=== PATIENT | female | born 1990 | race Caucasian/White ===

== ENCOUNTER 2016-05-27 18:38 | Emergency (ER) | payer MEDICAID ==
[~2016-05-27] VITALS: Ht 160 cm; Wt 72.7 kg
[~2016-05-27 18:38] MED LIST: AMOXICILLIN 50500 MG PO; AURALGAN EAR DR15 ML OT; BCP TD; BIRTH CONTROL; CIPRO 500MG TA500 MG PO; DUO-KAPS1 CAP PO; FLEXERIL 1010 MG/TAB PO; IBU-8800 MG PO; IMPLANON68 MG ID; LORTAB 5/500 501 TAB PO; MACROBID 1100 MG/CAP PO; METRONIDAZOLE500 MG PO; NAPROSYN500 MG PO; NIX CREME RINSE60 M1; NO HOME MEDICATIONS; NORCO 325 MG-51 TAB PO; NORCO 325 MG-7.1 TAB PO; NORCOELIX PO; PENICILLIN V500 MG PO; PEPCID 20MG TAB20 MG PO; PERCOCET 325 MG1 TA2 PO; PHENERGAN 25 TA25 MG PO; PHENERGAN25 MG RC; PREDNISONE10 MG PO; PREDNISONE20 MG PO; PYRIDIUM200 M1 PO; REGLAN10 MG PO; TRIAMCINOLONE0.1% TP; YASMIN 3 MG-0.01 TAB PO; ZITHROMAX 250M250 MG PO; ZITHROMAX Z PA250 MG PO; ZOFRAN 4MG T4 MG/TAB PO
[2016-05-27 18:42] VITALS: TEMP 97.2
[2016-05-27] MEDS ORDERED: PRENATAL1 TA7 PO (19:06)
[2016-05-27 19:31] LABS: PH 6 (5-8); URINE APPEARANCE Hazy; URINE BACTERIA Rare /hpf; URINE BILIRUBIN Negative (NEGATIVE); URINE BLOOD Negative (NEGATIVE); URINE COLOR Yellow; URINE GLUCOSE Negative (NEGATIVE); URINE KETONE Negative (NEGATIVE); URINE RBC 0-2 /hpf; URINE UROBILINOGEN Negative (NEGATIVE); URINE WBC 0-2 /hpf
[2016-05-27 20:32] LABS: BASO # 0.1 (0.0-0.2); BASO % 0.5 % (0.0-2.0); EOS # 0.2 (0.0-0.7); EOS % 1.8 % (0-4.0); GRAN # 8.8 (1.4-6.5); GRAN % 70.3 % (42.2-75.2); LYMPH # 2.4 (1.2-3.4); LYMPH % 19.1 % (20.0-51.0); MEAN CELL VOLUME 93 fl (80.0-100.0); MEAN CORPUSCULAR HEMOGLOBIN 32 pg (27.0-31.0); MEAN CORPUSCULAR HGB CONC 34 g/dl (33.0-37.0); MONO # 0.9 (0.1-0.6); MONO % 7.5 % (1.7-9.3); PLATELET COUNT 274 K/mm3 (130-400); RED BLOOD COUNT 3.78 M/mm3 (4.10-5.30); REDCELL DISTRIBUTION WIDTH-CV 12.9 % (11.5-14.5); WHITE BLOOD COUNT 12.5 K/mm3 (4.8-10.8)
[2016-05-27 20:37] LABS: HEMATOCRIT 35.1 % (37.0-47.0)
[2016-05-27 20:53] LABS: ADJUSTED CALCIUM 9.2 mg/dL (8.4-10.2); ALBUMIN 3.6 gm/dL (3.5-5.0); BILIRUBIN,TOTAL 0.4 mg/dL (0.0-1.0); CALCIUM 8.9 mg/dL (8.4-10.2); CREATININE, serum 0.49 mg/dL (0.52-1.25); POTASSIUM 3.6 mmol/L (3.4-5.0); TOTAL PROTEIN 6.8 gm/dL (6.4-8.2)
[2016-05-27 21:28] VITALS: BP 106/55; PULSE 85
[2016-09-09] MEDS ORDERED: TYLENOL 500MG500 MG PO (02:10)
== END 2016-05-27 21:29 | disposition home or self-care (01) ==
LOC: COL.ER 18:38
PROVIDERS: Nurse Practitioner
DX: O26.892 Other specified pregnancy related conditions, second trimester (principal); Z3A.18 18 weeks gestation of pregnancy; R42 Dizziness and giddiness; R10.2 Pelvic and perineal pain; N94.89 Other specified conditions associated with female genital organs and menstrual cycle; O99.332 Smoking (tobacco) complicating pregnancy, second trimester; F17.210 Nicotine dependence, cigarettes, uncomplicated

== ENCOUNTER 2016-05-30 00:39 | Emergency (ER) | payer MEDICAID ==
[~2016-05-30] VITALS: Ht 157.5 cm; Wt 72.7 kg
[~2016-05-30 00:39] MED LIST changes: +PRENATAL1 TA7 PO
[2016-05-30 00:51] VITALS: TEMP 97.5
[2016-05-30 01:50] LABS: BASO # 0.1 (0.0-0.2); BASO % 0.5 % (0.0-2.0); EOS # 0.1 (0.0-0.7); EOS % 0.4 % (0-4.0); GRAN # 14.3 (1.4-6.5); GRAN % 86.8 % (42.2-75.2); HEMATOCRIT 40.9 % (37.0-47.0); LYMPH # 0.9 (1.2-3.4); LYMPH % 5.7 % (20.0-51.0); MEAN CELL VOLUME 93 fl (80.0-100.0); MEAN CORPUSCULAR HEMOGLOBIN 32 pg (27.0-31.0); MEAN CORPUSCULAR HGB CONC 34 g/dl (33.0-37.0); MEAN PLATELET VOLUME 10.2 fl (7.4-10.4); MONO # 0.9 (0.1-0.6); MONO % 5.7 % (1.7-9.3); PLATELET COUNT 275 K/mm3 (130-400); RED BLOOD COUNT 4.41 M/mm3 (4.10-5.30); REDCELL DISTRIBUTION WIDTH-CV 12.7 % (11.5-14.5); WHITE BLOOD COUNT 16.5 K/mm3 (4.8-10.8)
[2016-05-30 01:59] LABS: ADJUSTED CALCIUM 9.1 mg/dL (8.4-10.2); ALBUMIN 4.2 gm/dL (3.5-5.0); BILIRUBIN,TOTAL 0.7 mg/dL (0.0-1.0); CALCIUM 9.3 mg/dL (8.4-10.2); CREATININE, serum 0.51 mg/dL (0.52-1.25); POTASSIUM 3.5 mmol/L (3.4-5.0); TOTAL PROTEIN 7.8 gm/dL (6.4-8.2)
[2016-05-30 02:30] LABS: PH 5 (5-8); URINE APPEARANCE Cloudy; URINE BACTERIA Rare /hpf; URINE BILIRUBIN Negative (NEGATIVE); URINE BLOOD Negative (NEGATIVE); URINE COLOR Amber; URINE GLUCOSE Negative (NEGATIVE); URINE KETONE 1+ (NEGATIVE); URINE RBC 0-2 /hpf; URINE UROBILINOGEN Negative (NEGATIVE)
[2016-05-30] MEDS ORDERED: PHENERGAN 25 TA25 MG PO (03:05)
[2016-05-30 03:46] VITALS: BP 108/55; PULSE 104
[2016-09-09] MEDS ORDERED: TYLENOL 500MG500 MG PO (02:10)
== END 2016-05-30 03:48 | disposition home or self-care (01) ==
LOC: COL.ER 00:39
PROVIDERS: Nurse Practitioner
DX: R10.31 Right lower quadrant pain (principal); R10.32 Left lower quadrant pain; R10.2 Pelvic and perineal pain; R11.10 Vomiting, unspecified; R19.7 Diarrhea, unspecified
CPT/HCPCS: J2270; J2550; J7030

== ENCOUNTER → 2016-09-09 | Outpatient (CLI) | payer MEDICAID ==
[~2016-09-09] VITALS: Ht 157.5 cm; Wt 90.0 kg
[~2016-09-09] MED LIST changes: +MOTRIN 800800 MG/TAB PO; +TYLENOL 500MG500 MG PO
[2016-09-09 01:00] VITALS: BP 134/84; PULSE 121; TEMP 97.8
[2016-09-09 01:30] VITALS: BP 128/73; PULSE 103; TEMP 97.8
[2016-09-09 02:00] VITALS: BP 119/68; PULSE 91
[2016-09-09 02:30] VITALS: BP 121/76; PULSE 82
[2016-09-09 02:50] VITALS: BP 127/74; PULSE 92
== END ==
LOC: LDRO 00:35
DX: O62.9 Abnormality of forces of labor, unspecified (principal); Z3A.33 33 weeks gestation of pregnancy

== ENCOUNTER 2016-09-22 15:58 | Inpatient (IN) | payer MEDICAID ==
[~2016-09-22] VITALS: Ht 157.5 cm; Wt 95.5 kg
[~2016-09-22 15:58] MED LIST changes: -MOTRIN 800800 MG/TAB PO
[2016-10-20] VITALS (36 sets, daily range): BP systolic 104–143; BP diastolic 56–104; PULSE 82–160; TEMP 97.3–99
[2016-10-20] MEDS ORDERED: TYLENOL 500MG500 MG PO (08:51)
[2016-10-20 09:31] LABS: BASO # 0.1 (0.0-0.2); BASO % 0.5 % (0.0-2.0); EOS # 0.2 (0.0-0.7); EOS % 1.7 % (0-4.0); GRAN # 8.4 (1.4-6.5); GRAN % 67.2 % (42.2-75.2); LYMPH # 2.7 (1.2-3.4); LYMPH % 21.3 % (20.0-51.0); MEAN CELL VOLUME 89 fl (80.0-100.0); MEAN CORPUSCULAR HGB CONC 34 g/dl (33.0-37.0); MEAN PLATELET VOLUME 10.7 fl (7.4-10.4); MONO # 1.1 (0.1-0.6); MONO % 8.7 % (1.7-9.3); PLATELET COUNT 293 K/mm3 (130-400); RED BLOOD COUNT 3.76 M/mm3 (4.10-5.30); WHITE BLOOD COUNT 12.5 K/mm3 (4.8-10.8)
[2016-10-20 09:33] LABS: HEMATOCRIT 33.4 % (37.0-47.0); HEMOGLOBIN 11.2 g/dl (12.5-16.0); MEAN CORPUSCULAR HEMOGLOBIN 30 pg (27.0-31.0)
[2016-10-21 04:10] VITALS: BP 112/65; PULSE 110; TEMP 98
[2016-10-21 06:58] LABS: HEMATOCRIT 32.5 % (37.0-47.0); HEMOGLOBIN 10.8 g/dl (12.5-16.0)
[2016-10-21 07:15] VITALS: BP 110/63; PULSE 90; TEMP 97.9
[2016-10-21 11:00] VITALS: BP 115/62; PULSE 99; TEMP 98
[2016-10-21 15:15] VITALS: BP 111/53; PULSE 99; TEMP 97.6
[2016-10-21 19:00] VITALS: BP 117/76; PULSE 96; TEMP 97.5
[2016-10-22 08:00] VITALS: BP 132/69; PULSE 96; TEMP 98.1
[2016-10-22] MEDS ORDERED: PERCOCET 325 MG1 TA2 PO (08:56)
[2016-10-22] MEDS ORDERED: MOTRIN 800800 MG/TAB PO (08:56)
== END 2016-10-22 17:10 | disposition home or self-care (01) | DRG 775 ==
LOC: LDR 10-20 07:00 → OB 10-20 07:15 → LDR 10-20 07:15 → OB 10-20 20:30 → EDSTATUS 10-27 06:59 → LDRO 10-27 15:57
PROVIDERS: Obstetrics & Gynecology
PROC: 10E0XZZ Delivery of Products of Conception, External Approach (ICD-10-PCS; principal; 2016-10-20)
PROC: 3E033VJ Introduction of Other Hormone into Peripheral Vein, Percutaneous Approach (ICD-10-PCS; 2016-10-20)
PROC: 0W8NXZZ Division of Female Perineum, External Approach (ICD-10-PCS; 2016-10-20)
DX: O13.3 Gestational [pregnancy-induced] hypertension without significant proteinuria, third trimester (principal); O76 Abnormality in fetal heart rate and rhythm complicating labor and delivery; O66.0 Obstructed labor due to shoulder dystocia; Z3A.39 39 weeks gestation of pregnancy; Z37.0 Single live birth
CPT/HCPCS: J2590; J2795; J7120

== ENCOUNTER 2016-10-14 17:52 | Outpatient (CLI) | payer MEDICAID ==
[~2016-10-14] VITALS: Ht 157.5 cm; Wt 94.5 kg
[2016-10-14 18:10] VITALS: BP 128/76; PULSE 121; TEMP 97.9
[2016-10-14 19:17] VITALS: PULSE 92
== END 2016-10-14 19:25 | disposition home or self-care (01) ==
LOC: LDRO 17:52
DX: Z34.83 Encounter for supervision of other normal pregnancy, third trimester (principal); F17.210 Nicotine dependence, cigarettes, uncomplicated; Z3A.38 38 weeks gestation of pregnancy

== ENCOUNTER 2017-03-24 22:17 | Emergency (ER) | payer MEDICAID ==
[~2017-03-24] VITALS: Ht 157.5 cm; Wt 81.8 kg
[~2017-03-24 22:17] MED LIST changes: +MOTRIN 800800 MG/TAB PO
[2017-03-24 22:33] VITALS: BP 142/67; TEMP 98.4
[2017-03-25 00:15] VITALS: PULSE 96
== END 2017-03-25 00:15 | disposition home or self-care (01) ==
LOC: COL.ER 22:17
DX: H18.822 Corneal disorder due to contact lens, left eye (principal); H10.9 Unspecified conjunctivitis; F17.210 Nicotine dependence, cigarettes, uncomplicated

== ENCOUNTER → 2017-04-29 | Outpatient (CLI) | payer MEDICAID ==
[2017-04-29 15:15] LABS: TSH w REFLEX 17.2 uIU/mL (0.465-4.680)
== END ==
LOC: COL.LAB 10:45
PROVIDERS: Family Medicine
DX: R53.83 Other fatigue (principal)

== ENCOUNTER → 2017-07-22 | Outpatient (CLI) | payer MEDICAID ==
[2017-07-22 15:58] LABS: TSH w REFLEX 5.72 uIU/mL (0.465-4.680)
== END ==
LOC: COL.LAB 10:37
PROVIDERS: Family Medicine
DX: E03.9 Hypothyroidism, unspecified (principal); Z88.1 Allergy status to other antibiotic agents

== ENCOUNTER → 2017-08-18 | Outpatient (CLI) | payer MEDICAID ==
[2017-08-18 16:02] LABS: ALBUMIN 4.1 gm/dL (3.5-5.0); BILIRUBIN,TOTAL 0.4 mg/dL (0.0-1.0); CHOLESTEROL RISK RATIO 3.9; CREATININE, serum 0.6 mg/dL (0.52-1.25); POTASSIUM 3.7 mmol/L (3.4-5.0); TOTAL PROTEIN 7.8 gm/dL (6.4-8.2)
== END ==
LOC: COL.LAB 12:14
PROVIDERS: Family Medicine
DX: E66.9 Obesity, unspecified (principal); Z83.79 Family history of other diseases of the digestive system

== ENCOUNTER → 2017-09-16 | Outpatient (CLI) | payer MEDICAID ==
[~2017-09-16] VITALS: Ht 157.5 cm; Wt 79.4 kg
[~2017-09-16] MED LIST changes: +SYNTHROID0.075 MG/T PO
[2017-09-16 14:21] VITALS: BP 116/82; PULSE 80
== END ==
LOC: LIGHT 11:09
DX: E03.9 Hypothyroidism, unspecified (principal); E66.9 Obesity, unspecified; Z68.32 Body mass index [BMI] 32.0-32.9, adult; Z71.3 Dietary counseling and surveillance; J30.9 Allergic rhinitis, unspecified; K58.9 Irritable bowel syndrome, unspecified
CPT/HCPCS: G0463

== ENCOUNTER → 2017-10-11 | Outpatient (CLI) | payer MEDICAID | LOC: LIGHT 10:21 | DX: Z01.89 Encounter for other specified special examinations (principal) ==

== ENCOUNTER → 2017-10-11 | Outpatient (CLI) | payer MEDICAID ==
[2017-10-11 18:01] LABS: THYROID STIMULATING HORMONE 2.55 uIU/mL (0.465-4.680)
== END ==
LOC: COL.LAB 16:29
PROVIDERS: Family Medicine
DX: E03.9 Hypothyroidism, unspecified (principal)

== ENCOUNTER → 2017-10-21 | Outpatient (CLI) | payer MEDICAID ==
[~2017-10-21] VITALS: Ht 157.5 cm; Wt 79.8 kg
[~2017-10-21] MED LIST changes: +PHENTERMINE15 MG PO
[2017-10-21 14:03] VITALS: BP 110/56; PULSE 72
== END ==
LOC: LIGHT 13:44
DX: E03.9 Hypothyroidism, unspecified (principal); K58.9 Irritable bowel syndrome, unspecified; J30.9 Allergic rhinitis, unspecified; E66.9 Obesity, unspecified; Z68.32 Body mass index [BMI] 32.0-32.9, adult; Z71.3 Dietary counseling and surveillance
CPT/HCPCS: G0463

== ENCOUNTER → 2017-12-02 | Outpatient (CLI) | payer MEDICAID ==
[~2017-12-02] VITALS: Ht 157.5 cm; Wt 76.2 kg
[2017-12-02 14:12] VITALS: BP 116/70; PULSE 100
== END ==
LOC: LIGHT 11:44
DX: E03.9 Hypothyroidism, unspecified (principal); J30.9 Allergic rhinitis, unspecified; K58.9 Irritable bowel syndrome, unspecified; E66.9 Obesity, unspecified; Z68.30 Body mass index [BMI] 30.0-30.9, adult; Z71.3 Dietary counseling and surveillance
CPT/HCPCS: G0463

== ENCOUNTER → 2017-12-20 | Outpatient (CLI) | payer MEDICAID ==
[2017-12-20 16:34] LABS: HIV 1/2 Antibodies Non-Reactive; HIV-1p24 Antigen Non-Reactive
[2017-12-21 00:48] LABS: RPR (VDRL) Non-reactive (())
== END ==
LOC: COL.LAB 11:56
PROVIDERS: Family Medicine
DX: Z11.3 Encounter for screening for infections with a predominantly sexual mode of transmission (principal)

== ENCOUNTER → 2018-01-13 | Outpatient (CLI) | payer MEDICAID ==
[~2018-01-13] VITALS: Ht 157.5 cm; Wt 75.3 kg
[2018-01-13 14:12] VITALS: BP 122/86; PULSE 80
== END ==
LOC: LIGHT 13:28
DX: E03.9 Hypothyroidism, unspecified (principal); J30.9 Allergic rhinitis, unspecified; K58.9 Irritable bowel syndrome, unspecified; E66.9 Obesity, unspecified; Z68.30 Body mass index [BMI] 30.0-30.9, adult; Z71.3 Dietary counseling and surveillance
CPT/HCPCS: G0463

== ENCOUNTER 2018-03-16 20:15 | Emergency (ER) | payer MEDICAID ==
[~2018-03-16] VITALS: Ht 157.5 cm; Wt 75.0 kg
[~2018-03-16 20:15] MED LIST changes: +FASTIN30 MG PO; -PHENTERMINE15 MG PO
[2018-03-16 20:22] VITALS: TEMP 97.7
[2018-03-16 21:45] LABS: BASO # 0.1 (0.0-0.2); BASO % 0.5 % (0.0-2.0); EOS # 0.1 (0.0-0.7); EOS % 1.3 % (0-4.0); GRAN # 8.6 (1.4-6.5); GRAN % 81.4 % (42.2-75.2); HEMATOCRIT 42.8 % (37.0-47.0); HEMOGLOBIN 14.7 g/dl (12.5-16.0); LYMPH # 1.3 (1.2-3.4); LYMPH % 11.9 % (20.0-51.0); MEAN CELL VOLUME 88 fl (80.0-100.0); MEAN CORPUSCULAR HEMOGLOBIN 30 pg (27.0-31.0); MEAN CORPUSCULAR HGB CONC 34 g/dl (33.0-37.0); MONO # 0.5 (0.1-0.6); MONO % 4.6 % (1.7-9.3); PLATELET COUNT 284 K/mm3 (130-400); RED BLOOD COUNT 4.87 M/mm3 (4.10-5.30); REDCELL DISTRIBUTION WIDTH-CV 12.4 % (11.5-14.5)
[2018-03-16 22:05] LABS: ALBUMIN 4.6 gm/dL (3.5-5.0); BILIRUBIN,TOTAL 0.7 mg/dL (0.0-1.0); CALCIUM 9.3 mg/dL (8.4-10.2); CREATININE, serum 0.63 mg/dL (0.52-1.25); POTASSIUM 3.6 mmol/L (3.4-5.0); TOTAL PROTEIN 7.9 gm/dL (6.4-8.2)
[2018-03-16 22:35] LABS: COLLECTION METHOD CLEAN CATCH
[2018-03-16 22:42] LABS: MUCOUS Present /lpf; PH 5 (5-8); URINE APPEARANCE Hazy; URINE BACTERIA Rare /hpf; URINE BILIRUBIN Negative (NEGATIVE); URINE BLOOD 3+ (NEGATIVE); URINE COLOR Yellow; URINE GLUCOSE Negative (NEGATIVE); URINE KETONE Negative (NEGATIVE); URINE LEUKOCYTE ESTERASE Trace (NEGATIVE); URINE NITRATE Negative (NEGATIVE); URINE PROTEIN(semi-quant) Negative (NEGATIVE); URINE UROBILINOGEN Negative (NEGATIVE)
[2018-03-16 23:06] VITALS: BP 104/66; PULSE 97
== END 2018-03-16 23:11 | disposition home or self-care (01) ==
LOC: COL.ER 20:15
PROVIDERS: Emergency Medicine
DX: K52.9 Noninfective gastroenteritis and colitis, unspecified (principal); E03.9 Hypothyroidism, unspecified; Z98.51 Tubal ligation status; F17.210 Nicotine dependence, cigarettes, uncomplicated
CPT/HCPCS: J2765; J7030

== ENCOUNTER → 2018-03-17 | Outpatient (CLI) | payer MEDICAID ==
[~2018-03-17] VITALS: Ht 157.5 cm; Wt 73.7 kg
[2018-03-17 13:04] VITALS: BP 106/72; PULSE 100
== END ==
LOC: LIGHT 11:08
DX: E03.9 Hypothyroidism, unspecified (principal); J30.9 Allergic rhinitis, unspecified; E66.9 Obesity, unspecified; Z68.29 Body mass index [BMI] 29.0-29.9, adult; Z71.3 Dietary counseling and surveillance
CPT/HCPCS: G0463

== ENCOUNTER → 2018-04-21 | Outpatient (CLI) | payer MEDICAID ==
[~2018-04-21] VITALS: Ht 157.5 cm; Wt 71.9 kg
[2018-04-21 14:30] VITALS: BP 118/84; PULSE 88
== END ==
LOC: LIGHT 14:17
DX: E03.9 Hypothyroidism, unspecified (principal); J30.9 Allergic rhinitis, unspecified; E66.9 Obesity, unspecified; Z68.29 Body mass index [BMI] 29.0-29.9, adult; Z71.3 Dietary counseling and surveillance
CPT/HCPCS: G0463

== ENCOUNTER → 2018-06-02 | Outpatient (CLI) | payer MEDICAID ==
[~2018-06-02] VITALS: Ht 157.5 cm; Wt 71.2 kg
[2018-06-02 14:15] VITALS: BP 118/78; PULSE 76
== END ==
LOC: LIGHT 11:00
DX: E03.9 Hypothyroidism, unspecified (principal); J30.9 Allergic rhinitis, unspecified; K58.9 Irritable bowel syndrome, unspecified; E66.9 Obesity, unspecified; Z68.28 Body mass index [BMI] 28.0-28.9, adult; Z71.3 Dietary counseling and surveillance
CPT/HCPCS: G0463

== ENCOUNTER → 2018-07-14 | Outpatient (CLI) | payer MEDICAID ==
[~2018-07-14] VITALS: Ht 157.5 cm; Wt 69.4 kg
[2018-07-14 13:32] VITALS: BP 128/76; PULSE 100
== END ==
LOC: LIGHT 10:54
DX: E03.9 Hypothyroidism, unspecified (principal); J30.9 Allergic rhinitis, unspecified; E66.9 Obesity, unspecified; Z68.28 Body mass index [BMI] 28.0-28.9, adult; Z71.3 Dietary counseling and surveillance
CPT/HCPCS: G0463

== ENCOUNTER → 2018-08-25 | Outpatient (CLI) | payer MEDICAID ==
[~2018-08-25] VITALS: Ht 157.5 cm; Wt 70.8 kg
[2018-08-25 14:14] VITALS: BP 120/82; PULSE 92
== END ==
LOC: LIGHT 13:41
DX: E03.9 Hypothyroidism, unspecified (principal); J30.9 Allergic rhinitis, unspecified; E66.9 Obesity, unspecified; Z68.28 Body mass index [BMI] 28.0-28.9, adult; Z71.3 Dietary counseling and surveillance
CPT/HCPCS: G0463

== ENCOUNTER → 2018-10-06 | Outpatient (CLI) | payer MEDICAID ==
[~2018-10-06] VITALS: Ht 157.5 cm; Wt 69.9 kg
[2018-10-06 14:21] VITALS: BP 110/70; PULSE 68
== END ==
LOC: LIGHT 13:58
DX: E03.9 Hypothyroidism, unspecified (principal); J44.9 Chronic obstructive pulmonary disease, unspecified; E66.9 Obesity, unspecified; Z68.28 Body mass index [BMI] 28.0-28.9, adult; Z71.3 Dietary counseling and surveillance
CPT/HCPCS: G0463

== ENCOUNTER → 2018-12-15 | Outpatient (CLI) | payer MEDICAID ==
[~2018-12-15] VITALS: Ht 157.5 cm; Wt 69.9 kg
[2018-12-15 10:27] VITALS: BP 120/80; PULSE 80
== END ==
LOC: LIGHT 10:22
DX: E03.9 Hypothyroidism, unspecified (principal); J44.9 Chronic obstructive pulmonary disease, unspecified; E66.9 Obesity, unspecified; Z68.28 Body mass index [BMI] 28.0-28.9, adult; Z71.3 Dietary counseling and surveillance
CPT/HCPCS: G0463

== ENCOUNTER → 2019-01-19 | Outpatient (CLI) | payer MEDICAID ==
[~2019-01-19] VITALS: Ht 157.5 cm; Wt 69.4 kg
[~2019-01-19] MED LIST changes: +ADIPEX-P37.5 MG PO; -FASTIN30 MG PO
[2019-01-19 11:43] VITALS: BP 120/86; PULSE 100
== END ==
LOC: LIGHT 01-12 13:59
DX: E03.9 Hypothyroidism, unspecified (principal); J30.9 Allergic rhinitis, unspecified; E66.9 Obesity, unspecified; Z68.28 Body mass index [BMI] 28.0-28.9, adult; Z71.3 Dietary counseling and surveillance
CPT/HCPCS: G0463

== ENCOUNTER → 2019-03-08 | Outpatient (CLI) | payer MEDICAID | LOC: COL.RAD 15:21 | DX: R05 Cough (principal) ==

== ENCOUNTER 2019-04-02 03:36 | Emergency (ER) | payer MEDICAID ==
[~2019-04-02] VITALS: Ht 157.5 cm; Wt 70.0 kg
[2019-04-02 04:01] LABS: BASO # 0.1 (0.0-0.2); BASO % 0.7 % (0.0-2.0); EOS # 0.3 (0.0-0.7); EOS % 1.7 % (0-4.0); GRAN # 10.3 (1.4-6.5); GRAN % 63.4 % (42.2-75.2); HEMATOCRIT 42.2 % (37.0-47.0); HEMOGLOBIN 14.5 g/dl (12.5-16.0); LYMPH # 4.4 (1.2-3.4); LYMPH % 27.2 % (20.0-51.0); MEAN CELL VOLUME 88 fl (80.0-100.0); MEAN CORPUSCULAR HEMOGLOBIN 30 pg (27.0-31.0); MEAN CORPUSCULAR HGB CONC 34 g/dl (33.0-37.0); MEAN PLATELET VOLUME 10.1 fl (7.4-10.4); MONO # 1.1 (0.1-0.6); MONO % 6.6 % (1.7-9.3); PLATELET COUNT 387 K/mm3 (130-400); REDCELL DISTRIBUTION WIDTH-CV 12.2 % (11.5-14.5)
[2019-04-02 04:10] LABS: ALBUMIN 4.9 gm/dL (3.5-5.0); BILIRUBIN,TOTAL 0.3 mg/dL (0.0-1.0); CALCIUM 9.4 mg/dL (8.4-10.2); CREATININE, serum 0.67 (0.52-1.25); TOTAL PROTEIN 8.4 gm/dL (6.4-8.2)
[2019-04-02 05:10] LABS: COLLECTION METHOD CLEAN CATCH
[2019-04-02 05:20] LABS: MUCOUS Present /lpf; PH 5 (5-8); SQUAMOUS EPITHELIAL 0-2 /hpf; URINE APPEARANCE Clear; URINE BACTERIA None Seen /hpf; URINE BILIRUBIN Negative (NEGATIVE); URINE BLOOD Negative (NEGATIVE); URINE COLOR Yellow; URINE GLUCOSE Negative (NEGATIVE); URINE KETONE Negative (NEGATIVE); URINE LEUKOCYTE ESTERASE Negative (NEGATIVE); URINE NITRATE Negative (NEGATIVE); URINE PROTEIN(semi-quant) Negative (NEGATIVE); URINE RBC 0-2 /hpf; URINE UROBILINOGEN Negative (NEGATIVE)
[2019-04-02 07:56] VITALS: BP 119/80; PULSE 82; TEMP 97.9
[2019-04-02] MEDS ORDERED: NORCO 325 MG-51 TAB PO (08:04)
[2019-04-02] MEDS ORDERED: ZOFRAN ODT4 MG SL (08:04)
== END 2019-04-02 08:40 | disposition home or self-care (01) ==
LOC: COL.ER 03:36
PROVIDERS: Emergency Medicine
DX: K81.9 Cholecystitis, unspecified (principal); E03.9 Hypothyroidism, unspecified; K58.9 Irritable bowel syndrome, unspecified
CPT/HCPCS: J1170; J2405; J3010; J7030; Q9967

== ENCOUNTER 2019-04-02 15:46 | Emergency (ER) | payer MEDICAID ==
[~2019-04-02] VITALS: Ht 157.5 cm; Wt 69.5 kg
[~2019-04-02 15:46] MED LIST changes: +ZOFRAN ODT4 MG SL
[2019-04-02 15:58] VITALS: TEMP 98
[2019-04-02 16:35] LABS: ALBUMIN 4.4 gm/dL (3.5-5.0); BILIRUBIN,TOTAL 1.5 mg/dL (0.0-1.0); CALCIUM 8.7 mg/dL (8.4-10.2); CREATININE, serum 0.67 (0.52-1.25); POTASSIUM 4.2 mmol/L (3.4-5.0); TOTAL PROTEIN 7.6 gm/dL (6.4-8.2)
[2019-04-02 16:37] LABS: BASO % 0.5 % (0.0-2.0); EOS # 0.1 (0.0-0.7); EOS % 1.2 % (0-4.0); GRAN # 5.5 (1.4-6.5); GRAN % 66.2 % (42.2-75.2); HEMATOCRIT 40.1 % (37.0-47.0); HEMOGLOBIN 13.6 g/dl (12.5-16.0); LYMPH % 23.5 % (20.0-51.0); MEAN CELL VOLUME 90 fl (80.0-100.0); MEAN CORPUSCULAR HEMOGLOBIN 31 pg (27.0-31.0); MEAN CORPUSCULAR HGB CONC 34 g/dl (33.0-37.0); MEAN PLATELET VOLUME 10.2 fl (7.4-10.4); MONO # 0.7 (0.1-0.6); MONO % 8.2 % (1.7-9.3); PLATELET COUNT 327 K/mm3 (130-400); RED BLOOD COUNT 4.45 M/mm3 (4.10-5.30); REDCELL DISTRIBUTION WIDTH-CV 12.4 % (11.5-14.5)
[2019-04-02 18:50] VITALS: BP 103/65; PULSE 77
== END 2019-04-02 18:50 | disposition home or self-care (01) ==
LOC: COL.ER 15:46
PROVIDERS: Emergency Medicine
DX: R10.31 Right lower quadrant pain (principal)
CPT/HCPCS: J0780; J1170; J1885; J2405; J7030

== ENCOUNTER → 2019-05-11 | Outpatient (CLI) | payer MEDICAID ==
[~2019-05-11] MED LIST changes: +CONSTULOSE 20G/30ML PO; +MICONAZOLE VG
== END ==
LOC: COL.LAB 17:12
DX: E03.9 Hypothyroidism, unspecified (principal)

== ENCOUNTER 2019-05-19 21:32 | Emergency (ER) | payer MEDICAID ==
[~2019-05-19] VITALS: Ht 157.5 cm; Wt 68.2 kg
[~2019-05-19 21:32] MED LIST changes: -CONSTULOSE 20G/30ML PO; -MICONAZOLE VG
[2019-05-19 22:13] LABS: BASO # 0.1 (0.0-0.2); BASO % 0.6 % (0.0-2.0); EOS # 0.3 (0.0-0.7); GRAN # 7.7 (1.4-6.5); GRAN % 66.5 % (42.2-75.2); HEMATOCRIT 42.2 % (37.0-47.0); HEMOGLOBIN 14.3 g/dl (12.5-16.0); LYMPH # 2.5 (1.2-3.4); LYMPH % 21.4 % (20.0-51.0); MEAN CELL VOLUME 91 fl (80.0-100.0); MEAN CORPUSCULAR HEMOGLOBIN 31 pg (27.0-31.0); MEAN CORPUSCULAR HGB CONC 34 g/dl (33.0-37.0); MEAN PLATELET VOLUME 9.8 fl (7.4-10.4); MONO % 8.2 % (1.7-9.3); PLATELET COUNT 352 K/mm3 (130-400); RED BLOOD COUNT 4.65 M/mm3 (4.10-5.30); REDCELL DISTRIBUTION WIDTH-CV 12.6 % (11.5-14.5)
[2019-05-19 22:31] LABS: ALBUMIN 4.7 gm/dL (3.5-5.0); C-REACTIVE PROTEIN 1.6 mg/dL (0.0-0.9); CALCIUM 9.6 mg/dL (8.4-10.2); CREATININE, serum 0.6 (0.52-1.25); POTASSIUM 3.9 mmol/L (3.4-5.0); TOTAL PROTEIN 7.9 gm/dL (6.4-8.2)
[2019-05-19 23:16] LABS: COLLECTION METHOD CLEAN CATCH
[2019-05-19 23:28] LABS: BUDDING YEAST Present /hpf; PH 8 (5-8); SQUAMOUS EPITHELIAL 0-2 /hpf; URINE APPEARANCE Cloudy; URINE BACTERIA None Seen /hpf; URINE BILIRUBIN Negative (NEGATIVE); URINE BLOOD Negative (NEGATIVE); URINE COLOR Yellow; URINE GLUCOSE Negative (NEGATIVE); URINE KETONE Negative (NEGATIVE); URINE LEUKOCYTE ESTERASE Negative (NEGATIVE); URINE NITRATE Negative (NEGATIVE); URINE PROTEIN(semi-quant) Negative (NEGATIVE); URINE RBC 0-2 /hpf; URINE UROBILINOGEN Negative (NEGATIVE)
[2019-05-20] MEDS ORDERED: CONSTULOSE 20G/30ML PO (00:09)
[2019-05-20] MEDS ORDERED: NORCO 325 MG-51 TAB PO (00:09)
[2019-05-20] MEDS ORDERED: MICONAZOLE VG (00:12)
[2019-05-20 00:19] VITALS: BP 98/55; PULSE 94; TEMP 98.7
== END 2019-05-20 00:28 | disposition home or self-care (01) ==
LOC: COL.ER 21:32
PROVIDERS: Emergency Medicine
DX: K59.00 Constipation, unspecified (principal); G89.18 Other acute postprocedural pain; R10.84 Generalized abdominal pain; E03.9 Hypothyroidism, unspecified; F17.210 Nicotine dependence, cigarettes, uncomplicated; Z98.51 Tubal ligation status; Z90.89 Acquired absence of other organs
CPT/HCPCS: J2060; J2405; J3010; J7030; Q9967

== ENCOUNTER → 2019-05-26 | Outpatient (CLI) | payer MEDICAID ==
[~2019-05-26] MED LIST changes: +CONSTULOSE 20G/30ML PO; +MICONAZOLE VG
[2019-05-26 15:35] LABS: HEMATOCRIT 40.9 % (37.0-47.0); HEMOGLOBIN 13.7 g/dl (12.5-16.0); MEAN CELL VOLUME 91 fl (80.0-100.0); MEAN CORPUSCULAR HEMOGLOBIN 30 pg (27.0-31.0); MEAN CORPUSCULAR HGB CONC 34 g/dl (33.0-37.0); MEAN PLATELET VOLUME 9.8 fl (7.4-10.4); PLATELET COUNT 361 K/mm3 (130-400); RED BLOOD COUNT 4.52 M/mm3 (4.10-5.30); REDCELL DISTRIBUTION WIDTH-CV 12.4 % (11.5-14.5)
[2019-05-26 15:45] LABS: ALBUMIN 4.7 gm/dL (3.5-5.0); BILIRUBIN,TOTAL 0.7 mg/dL (0.0-1.0); CALCIUM 9.2 mg/dL (8.4-10.2); CREATININE, serum 0.57 (0.52-1.25); POTASSIUM 4.2 mmol/L (3.4-5.0); TOTAL PROTEIN 8.1 gm/dL (6.4-8.2)
== END ==
LOC: COL.LAB 15:03
PROVIDERS: Surgery
DX: K80.10 Calculus of gallbladder with chronic cholecystitis without obstruction (principal)

== ENCOUNTER 2019-06-02 13:14 | Day surgery (SDC) | payer MEDICAID ==
[2019-06-02] VITALS (12 sets, daily range): BP systolic 97–119; BP diastolic 54–75; PULSE 59–95; TEMP 97.3–97.9
[~2019-06-02] VITALS: Ht 157.5 cm; Wt 71.4 kg
[2019-06-02] MEDS ORDERED: ADIPEX-P37.5 MG PO (13:49)
--- NOTE | 2019-06-02 13:49 | NUR ---
TO RM AT 1315- CALL LIGHT IN REACH FAMILY AT BEDSIDE.
--- NOTE | 2019-06-02 15:50 | NUR ---
TO BAY 3 PER CART. PATIENT CRYING IN PAIN, RECEIVED FENTANYL IN PROCEDURE RM FOLLOWING PROCEDURE. RECEIVED WARM BLANKET ACROSS ABDOMEN. C/O NOSE BURNING. BLEW HER NOSE AND STATED IT HELPED.
--- NOTE | 2019-06-02 16:05 | NUR ---
PATIENT HAS CALMED DOWN AND NOT CRYING. DR RIVAS INTO TALK WITH PATIENT AND HER FAMILY.
--- NOTE | 2019-06-02 16:10 | NUR ---
RECEIVED WATER AND TAKING SIPS. NO LONGER CRYING AND STATED SHE IS FEELING BETTER.
--- NOTE | 2019-06-02 16:15 | NUR ---
1615-Patient is resting supine on ERCP cart with family at bedside. Vitals remain stable. She reports pain improved to 5/10 and is more "crampy" pain. Mild nausea so encouraged to hold off on fluids for now. She was given Zofran at 1530. Glasses returned to her. 1620-Report called to TYRONE Leahy on surgical floor. Patient is transferring to room 328.
--- NOTE | 2019-06-02 16:28 | NUR ---
1628-Taken via cart to room 328 by TYRONE Hart at this time. Belongings with her and family present to accompany her.
--- NOTE | 2019-06-02 18:29 | NUR ---
Patient to room 328 from [facility]. She was up to the bathroom & did have some emesis & did also void. Resting now. Vss on room air. Will let her rest. family at bedside.
--- NOTE | 2019-06-02 19:51 | NUR ---
Patient discharged at 1999 via wheelchair to home with family. IV to R wrist discontinued, catheter intact, bandaid applied. patient tolerated clears. has not had any emesis since arrival to floor. denies pain, except for slight headache. patient teaching done. discharge paperwork signed. no further needs at this time. has ambulated and voided without issue. dressed independently. patient discharged at 1999 via wheelchair to home with family.
== END 2019-06-02 20:00 | disposition home or self-care (01) ==
LOC: SDCO 13:14 → JCC 17:00 → SDCO 20:00
DX: K83.8 Other specified diseases of biliary tract (principal); K31.9 Disease of stomach and duodenum, unspecified; R94.5 Abnormal results of liver function studies; R10.11 Right upper quadrant pain; E03.9 Hypothyroidism, unspecified; F17.210 Nicotine dependence, cigarettes, uncomplicated; Z79.899 Other long term (current) drug therapy; Z88.1 Allergy status to other antibiotic agents; Z90.49 Acquired absence of other specified parts of digestive tract
CPT/HCPCS: OP; C1769; J2405; J2704; J3010; J7120; Q9967

== ENCOUNTER 2019-06-03 09:10 | Inpatient (IN) | payer MEDICAID ==
[~2019-06-03] VITALS: Ht 157.5 cm; Wt 75.9 kg
[2019-06-03] VITALS (10 sets, daily range): BP systolic 108–121; BP diastolic 59–66; PULSE 62–106; TEMP 98.5–99
[2019-06-03 10:08] LABS: BASO # 0.1 (0.0-0.2); BASO % 0.6 % (0.0-2.0); EOS # 0.3 (0.0-0.7); EOS % 2.3 % (0-4.0); GRAN # 9.9 (1.4-6.5); GRAN % 73.7 % (42.2-75.2); HEMATOCRIT 43.2 % (37.0-47.0); HEMOGLOBIN 14.5 g/dl (12.5-16.0); LYMPH # 2.3 (1.2-3.4); LYMPH % 16.9 % (20.0-51.0); MEAN CELL VOLUME 90 fl (80.0-100.0); MEAN CORPUSCULAR HEMOGLOBIN 30 pg (27.0-31.0); MEAN CORPUSCULAR HGB CONC 34 g/dl (33.0-37.0); MONO # 0.8 (0.1-0.6); MONO % 6.1 % (1.7-9.3); PLATELET COUNT 376 K/mm3 (130-400); RED BLOOD COUNT 4.78 M/mm3 (4.10-5.30); REDCELL DISTRIBUTION WIDTH-CV 12.2 % (11.5-14.5)
[2019-06-03 10:19] LABS: ALBUMIN 4.6 gm/dL (3.5-5.0); BILIRUBIN,TOTAL 0.7 mg/dL (0.0-1.0); C-REACTIVE PROTEIN 1.8 mg/dL (0.0-0.9); CALCIUM 9.1 mg/dL (8.4-10.2); CREATININE, serum 0.62 (0.52-1.25); TOTAL PROTEIN 7.6 gm/dL (6.4-8.2)
--- NOTE | 2019-06-03 12:10 | NUR ---
Patient arrived to floor from ED via bed. Patient is alert and oriented but reports severe pain and is very tearful at this time. Administered NOW dose of morphine that was not given in ED as confirmed by ED nurse. Patient reports little relief with medication administration. Call light within reach.
[2019-06-03 13:30] LABS: CHOLESTEROL RISK RATIO 2.9
--- NOTE | 2019-06-03 14:40 | NUR ---
HUMAN RESOURCES OFFICE MANAGER initiated per order. Patient reports pain at 8/10 and is tearful while awake. Patient is able to sleep, but rouses easily. Patient denies further needs at this time, call light within reach.
--- NOTE | 2019-06-03 16:54 | NUR ---
Patient reports severe pain when attempting to get out of the bed to urinate. Patient attempting to use the bedside commode at this time. Patient reports that pain is not well controlled, administered 0.2mg bolus dose per protocol, reported to hospitalist midlevel and recieved instructions to continue to monitor. Call light within reach.
--- NOTE | 2019-06-03 21:31 | NUR ---
Patient c/o severe pain. COMMUNITY PLANNING TECHNICIAN in place, encouraged patient to push button if pain was not controlled. pain was not adequately controlled and patient was yelling out in pain and tearful, COMMUNITY PLANNING TECHNICIAN dilaudid bolus of 0.2 mg given at this time. hot packs to abd. sleeping some but arouses easily. encouraged family to leave so that she could rest. took scheduled senokot with a sip of water without issue. SCDs applied. ABD old lap sites x4 noted, these are healed nicely. no further needs at this time. will continue to monitor.
[2019-06-04 04:44] VITALS: BP 144/77; PULSE 116; TEMP 98.3
[2019-06-04 04:46] VITALS: BP 144/77; PULSE 116
--- NOTE | 2019-06-04 07:30 | NUR ---
Patient resting in bed, tearful & upset. Patient reports abdominal pain, no specific location on abdomen. She reports pain into her back. Described as sharp,stabbing, aching. Manager Gyn Dilaudid for pain mangement, she is using bolus as needed. She denied hot pack/kpad. Cold wash cloth to her forehead. She also reported nausea-zofran Prn given. She is Npo. Assisted with oral care, she was very appreciative. Ivf per orders. Scds Ble. Will monitor.
[2019-06-04 07:49] LABS: BASO % 0.2 % (0.0-2.0); EOS # 0.3 (0.0-0.7); EOS % 1.7 % (0-4.0); GRAN # 15.3 (1.4-6.5); GRAN % 83.6 % (42.2-75.2); HEMOGLOBIN 14.1 g/dl (12.5-16.0); LYMPH # 1.4 (1.2-3.4); LYMPH % 7.4 % (20.0-51.0); MEAN CELL VOLUME 93 fl (80.0-100.0); MEAN CORPUSCULAR HEMOGLOBIN 31 pg (27.0-31.0); MEAN CORPUSCULAR HGB CONC 33 g/dl (33.0-37.0); MEAN PLATELET VOLUME 10.4 fl (7.4-10.4); MONO # 1.2 (0.1-0.6); MONO % 6.6 % (1.7-9.3); PLATELET COUNT 288 K/mm3 (130-400); RED BLOOD COUNT 4.61 M/mm3 (4.10-5.30); REDCELL DISTRIBUTION WIDTH-CV 12.5 % (11.5-14.5)
[2019-06-04 08:01] VITALS: BP 134/78; PULSE 102; TEMP 99.4
[2019-06-04 08:03] LABS: ALBUMIN 3.7 gm/dL (3.5-5.0); BILIRUBIN,TOTAL 0.7 mg/dL (0.0-1.0); CREATININE, serum 0.46 (0.52-1.25); POTASSIUM 3.5 mmol/L (3.4-5.0); TOTAL PROTEIN 6.6 gm/dL (6.4-8.2)
--- NOTE | 2019-06-04 10:16 | NUR ---
Patient sleeping, apprears very comfortable at this time.
--- NOTE | 2019-06-04 10:49 | NUR ---
Patient lives at home with her 9 year old daughter and 2 year old son in [place], [place] and plans to return home upon recovery. Patient receives support from her mother (Emily Yin [phone]), she is independent with daily living activities, and is a homemaker. Patient does not have any durable medical equipment usage or needs at this time, her primary care physician is Gayla Glaser, her pharmacy is [facility], and she does not have advance directives for healthcare completed at this time. No further needs and social service coordinator will follow as needed.
[2019-06-04 11:47] VITALS: BP 127/69; PULSE 131; TEMP 98.2
[2019-06-04 13:36] LABS: COLLECTION METHOD IN
[2019-06-04 13:46] LABS: MUCOUS Present /lpf; PH 5 (5-8); SQUAMOUS EPITHELIAL 0-2 /hpf; URINE APPEARANCE Hazy; URINE BACTERIA None Seen /hpf; URINE BILIRUBIN Negative (NEGATIVE); URINE BLOOD Negative (NEGATIVE); URINE COLOR Yellow; URINE GLUCOSE Negative (NEGATIVE); URINE KETONE 2+ (NEGATIVE); URINE LEUKOCYTE ESTERASE Negative (NEGATIVE); URINE NITRATE Negative (NEGATIVE); URINE PROTEIN(semi-quant) Negative (NEGATIVE); URINE RBC 0-2 /hpf; URINE UROBILINOGEN Negative (NEGATIVE)
[2019-06-04 16:08] VITALS: BP 128/63; PULSE 124; TEMP 100
--- NOTE | 2019-06-04 17:50 | NUR ---
Patient resting in bed. Hwang inserted this afternoon by washhouse hand after failed attempt by this nurse. Patient felt better after. Her Home Advisor setting changed & verified with Marii Rn- continous not just a bolus dose. She has denied nausea this afternoon. She is tolerating few ice chips. Strict I&O. Patient mood was improved until she talked on the phone with her family, then she became very upset. She is worried and concerned about her children & not being able to care for them.
[2019-06-04 19:11] VITALS: BP 124/58; PULSE 122; TEMP 98.4
--- NOTE | 2019-06-04 21:30 | NUR ---
Patient alert resting in bed. Patient has SENIOR PROGRAM MANAGER for pain management. Hwang catheter in a this time. Patient states pain is manageable, but does spike at times. Patient is tolerating ice chips. No nausea noted at this time.
[2019-06-05] VITALS (10 sets, daily range): BP systolic 105–129; BP diastolic 54–69; PULSE 108–133; TEMP 98.4–102
--- NOTE | 2019-06-05 01:32 | NUR ---
Patient day care teacher alerted this nurse that the patient was running a fever. Patient was covered in many blankets, removed blankets and rechecked temp at 101.8. Reported to Harini Mendiola APRN new orders noted.
[2019-06-05 06:41] LABS: HEMATOCRIT 37.2 % (37.0-47.0); MEAN CELL VOLUME 96 fl (80.0-100.0); MEAN CORPUSCULAR HEMOGLOBIN 31 pg (27.0-31.0); MEAN CORPUSCULAR HGB CONC 32 g/dl (33.0-37.0); MEAN PLATELET VOLUME 10.6 fl (7.4-10.4); PLATELET COUNT 292 K/mm3 (130-400); RED BLOOD COUNT 3.88 M/mm3 (4.10-5.30); REDCELL DISTRIBUTION WIDTH-CV 12.7 % (11.5-14.5)
[2019-06-05 07:02] LABS: CALCIUM 7.2 mg/dL (8.4-10.2); CREATININE, serum 0.53 (0.52-1.25); MAGNESIUM 1.8 mg/dL (1.6-2.3); POTASSIUM 3.1 mmol/L (3.4-5.0)
[2019-06-05 08:00] LABS: BAND 9 % (0-10); LYMPHOCYTE 10 % (20.0-51.0); NEUTROPHILS 75 % (42.0-75.2)
[2019-06-05 08:01] LABS: PLATELET ESTIMATE NORMAL (NORMAL)
--- NOTE | 2019-06-05 09:16 | NUR ---
PT RESTING IN BED. REFUSING AMITIZA. DR. RIVAS NOTIFIED OF CONSULT. CRITICAL LAB DISCUSSED WITH MEE MCKENZIE. SEE COMPUTER FOR ORDERS,
[2019-06-05 09:24] LABS: ARTERIAL BLD GAS O2 SATURATION 93.3 % (92-100); ARTERIAL BLD GAS TCO2 CT 14.8; ARTERIAL BLOOD GAS BASE EXCESS -10.7 (-2-2); ARTERIAL BLOOD GAS HCO3 13.9 meq/L (22-26); ARTERIAL BLOOD GAS PCO2 27.7 mmHg (35-45); ARTERIAL BLOOD GAS PO2 64.7 mmHg (80-100); ARTERIAL BLOOD GAS pH 7.32 (7.35-7.45)
--- NOTE | 2019-06-05 10:56 | NUR ---
PT TO CT AT THIS TIME. IV STOPPED UNTIL RETURNED.
--- NOTE | 2019-06-05 11:23 | NUR ---
PT RETURNED FROM CT,
--- NOTE | 2019-06-05 12:41 | NUR ---
First visit from the can inspector. No needs right now.
--- NOTE | 2019-06-05 15:49 | NUR ---
PATIENT CONTINUES TO BE TEARFUL WHEN TALKING WITH STAFF. PT IS SNORING AND SLEEPING BETWEEN CHECKS.
--- NOTE | 2019-06-05 18:30 | NUR ---
Report received at bedside from [facility] nurse. PT's aunt is present at bedside and requests that the Physician contacts her tomorrow morning to discuss the patient's condition. PT is noted to be in bed with fluids running via IV pump and PICCOLO MECHANIC pump. No s/s of distress noted. Will continue to monitor.
--- NOTE | 2019-06-05 21:00 | NUR ---
PT has been resting in bed alternating between having her eyes open and closed. PT has continues to have pain at her abdomen throughout the shift. During rounds this bond underwriter has reminded PT to use her CABLE ENGINEER OUTSIDE PLANT button to deliver her PRN meds via her CABLE ENGINEER OUTSIDE PLANT Pump. PT remains in stable condition with no s/s of distress. Will continue to monitor.
[2019-06-06] VITALS (14 sets, daily range): BP systolic 102–132; BP diastolic 52–71; PULSE 100–121; TEMP 98.8–102.3
--- NOTE | 2019-06-06 01:19 | NUR ---
PT is resting in bed at this time with eyes closed and no s/s of distress noted. IV fluids and CLIMATOLOGIST Pump infusing without complications nor s/s of adverse reactions noted. Will continue to monitor.
--- NOTE | 2019-06-06 04:30 | NUR ---
Pt is resting in bed peacefully with eyes closed and IV fluids and ABSTRACT MANAGER fluids infusing without complications. Pt has been up to the bedside commode with assistance from AGENT. PT has remained NPO this shift and has had ice chips for mouth hydration as well as using the melting ice water for oral care via swabs. Pt remains in stable condition at this time with no s/s of distress noted.
[2019-06-06 05:51] LABS: BASO # 0.1 (0.0-0.2); BASO % 0.4 % (0.0-2.0); EOS # 0.6 (0.0-0.7); EOS % 3.1 % (0-4.0); GRAN # 15.6 (1.4-6.5); GRAN % 79.8 % (42.2-75.2); HEMATOCRIT 36.1 % (37.0-47.0); LYMPH # 1.7 (1.2-3.4); LYMPH % 8.6 % (20.0-51.0); MEAN CELL VOLUME 93 fl (80.0-100.0); MEAN CORPUSCULAR HEMOGLOBIN 31 pg (27.0-31.0); MEAN CORPUSCULAR HGB CONC 33 g/dl (33.0-37.0); MEAN PLATELET VOLUME 9.8 fl (7.4-10.4); MONO # 1.5 (0.1-0.6); MONO % 7.6 % (1.7-9.3); PLATELET COUNT 277 K/mm3 (130-400); RED BLOOD COUNT 3.88 M/mm3 (4.10-5.30); REDCELL DISTRIBUTION WIDTH-CV 12.3 % (11.5-14.5)
[2019-06-06 06:06] LABS: ALANINE AMINOTRANSFERASE 17 U/L (4-34); ALBUMIN 3.1 gm/dL (3.5-5.0); ALKALINE PHOSPHATASE 114 U/L (50-136); ANION GAP 12 mmol/L (7-16); AST,SGOT 20 U/L (15-37); CALCIUM 7.6 mg/dL (8.4-10.2); CARBON DIOXIDE 20 mmol/L (22-30); CHLORIDE 104 mmol/L (98-107); CREATININE, serum 0.43 (0.52-1.25); GLUCOSE 94 mg/dL (74-106); MAGNESIUM 1.7 mg/dL (1.6-2.3); POTASSIUM 3.6 mmol/L (3.4-5.0); SODIUM 135 mmol/L (137-145); TOTAL PROTEIN 5.9 gm/dL (6.4-8.2)
[2019-06-06 06:10] LABS: BLOOD UREA NITROGEN < 2 mg/dL (7-17)
--- NOTE | 2019-06-06 06:40 | NUR ---
PT reported given to Marni HANSEN at bedside. Pt is resting peacefully with eyes closed and periodically making noises consistent with pain. No distress noted.
--- NOTE | 2019-06-06 08:00 | NUR ---
PATIENT IS DROWSY AND RESTING IN BED THIS MORNING. PATIENT IS A&OX4. TACHYCARDIA NOTED. TELE IN PLACE. SHALLOW BREATHING NOTED. LUNG BASES DIMINISHED. ABDOMEN IS DISTENDED. BOWEL SOUNDS HYPOACTIVE. OLD ABDOMINAL LAP SITES WELL APPROXIMATED. TRACE EDEMA TO BLE. INDWELLING RAMESH CATHETER TO DEPENDENT DRAINAGE WITH CLEAR YELLOW URINE PRESENT. COST ESTIMATOR INFUSING TO LEFT AC. RIGHT FOREARM TO INT. CALL LIGHT WITHIN REACH. PATIENT DENIES ANY NEEDS AT THIS TIME.
--- NOTE | 2019-06-06 11:41 | NUR ---
GUY attended clinical rounds. The hospitalist discussed consulting the dietitian for TPN and getting a PICC placed. GUY then followed up with the patient. She states that she is doing okay. She states that her two children are with her sister, Alena, while she is here. She had no other questions for GUY at this time. SW to continue to follow.
--- NOTE | 2019-06-06 12:15 | NUR ---
PATIENT SAT UP AT THE BEDSIDE FOR 15 MINUTES. PATIENT BECAME NAUSEATED WHEN LAYING BACK DOWN. PRN ZOFRAN GIVEN. WILL CONTINUE TO MONITOR.
--- NOTE | 2019-06-06 16:45 | NUR ---
PATIENT ASSISTED UP TO THE BEDSIDE CHAIR. LINENS CHANGED. PATIENT ASSISTED WITH BED BATH. CALL LIGHT AND COOK VEGETABLE BUTTON WITHIN REACH. PATIENT DENIES ANY OTHER NEEDS AT THIS TIME.
--- NOTE | 2019-06-06 18:49 | NUR ---
PATIENT EVENING BLOOD SUGAR 69. IV FLUIDS CHANGED TO D10W AT 50 ML/HR PER PROTOCOL. PATIENT UP TO CHAIR. BEDSIDE SHIFT REPORT GIVEN TO TYRONE MONTOYA.
--- NOTE | 2019-06-06 23:51 | NUR ---
Patient doing okay tonight, alert and oriented. c/o moderate pain to abd. LABORER YARD infusing without issues, encouraged pt to push button if in pain. torres to dependent drainage with clear yellow urine output. IV fluids and IV abx infusing without issue. patient remains NPO with ice chips. old lap sites x4 healed. patient concerned about the bruises to bilateral thighs, reminded patient that she has not been eating and is probably low on iron and that she is on her period as well so bruising easily is fairly normal. no further needs at this time. patient is resting in bed, will continue to monitor.
[2019-06-07] VITALS (7 sets, daily range): BP systolic 113–134; BP diastolic 64–69; PULSE 106–121; TEMP 98.4–100.5
--- NOTE | 2019-06-07 02:10 | NUR ---
patient noted to have elevated temp by STAFF TRAINER, 102.3. PRN tylenol given. Harini MCKENZIE notified, stat CT ordered. no significant change from previous CT. Discussed with harini mckenzie. will continue to monitor.
[2019-06-07 06:05] LABS: BASO # 0.1 (0.0-0.2); BASO % 0.3 % (0.0-2.0); EOS # 0.5 (0.0-0.7); EOS % 2.9 % (0-4.0); GRAN # 14.1 (1.4-6.5); GRAN % 78.1 % (42.2-75.2); HEMATOCRIT 35.1 % (37.0-47.0); HEMOGLOBIN 12.1 g/dl (12.5-16.0); LYMPH # 1.5 (1.2-3.4); LYMPH % 8.2 % (20.0-51.0); MEAN CELL VOLUME 91 fl (80.0-100.0); MEAN CORPUSCULAR HEMOGLOBIN 31 pg (27.0-31.0); MEAN CORPUSCULAR HGB CONC 35 g/dl (33.0-37.0); MEAN PLATELET VOLUME 9.9 fl (7.4-10.4); MONO # 1.7 (0.1-0.6); MONO % 9.6 % (1.7-9.3); PLATELET COUNT 282 K/mm3 (130-400); RED BLOOD COUNT 3.88 M/mm3 (4.10-5.30); REDCELL DISTRIBUTION WIDTH-CV 12.2 % (11.5-14.5)
[2019-06-07 06:08] LABS: INR 1.3 (0.8-3.0); PROTHROMBIN TIME 15.4 SECONDS (9.7-12.8)
[2019-06-07 06:10] LABS: ALANINE AMINOTRANSFERASE 20 U/L (4-34); ALBUMIN 3.4 gm/dL (3.5-5.0); ALKALINE PHOSPHATASE 144 U/L (50-136); ANION GAP 10 mmol/L (7-16); AST,SGOT 31 U/L (15-37); BILIRUBIN,TOTAL 0.7 mg/dL (0.0-1.0); BLOOD UREA NITROGEN < 2 mg/dL (7-17); CARBON DIOXIDE 24 mmol/L (22-30); CHLORIDE 101 mmol/L (98-107); CREATININE, serum 0.31 (0.52-1.25); GLUCOSE 109 mg/dL (74-106); MAGNESIUM 1.8 mg/dL (1.6-2.3); POTASSIUM 3.4 mmol/L (3.4-5.0); SODIUM 135 mmol/L (137-145); TOTAL PROTEIN 6.4 gm/dL (6.4-8.2)
--- NOTE | 2019-06-07 09:26 | NUR ---
Patient to radiology for Picc line placement. consent obtained Christineyuly was assisted with hygiene this am. New mesh underwear & pad. Pericare & torres care provided. Fresh linens. She was independent with oral care. She remains Npo, with ice chips-denies nausea. Pain continues to be managed with Commercial Cleaner.
--- NOTE | 2019-06-07 11:00 | NUR ---
Patient had returned from radiology. Spoke with on phone prior to patient arrival to floor and he verified line was okay for immediate use, but that he did not heparinize line. Patient settled back in her bed & Iv line hooked up. Picc line cap placed that was not on line & started new central line dressing change because dressing was bloody. Kennedy with radiology returned & per chest xray placement on not correct. Patient then taken back to radiology department & placement confirmed.
--- NOTE | 2019-06-07 11:38 | NUR ---
Patient has returned from radiology. Picc to Right upper arm. Dressing intact with gauze & tegaderm over site. No stat lock. Berkley Parker rounded & aware of issuse with Picc line. supervisor communications and signals & supervisor coin machine also made aware
[2019-06-07 12:30] LABS: PHOSPHOROUS 1.4 mg/dL (2.5-4.5)
[2019-06-07 12:34] LABS: PRE ALBUMIN 5.2 mg/dL (17.6-36.0)
--- NOTE | 2019-06-07 19:32 | NUR ---
Patient resting in bed. She has had an eventful day. Clindamix started via single lumen picc line to Rue at 42 ml/hr. Good blood return prior to starting. Patient sodium phosphate finished via picc. Prior to starting Coni RN & Vesna RN supervisors assisted with Picc line dressing change via sterile teqchnique. Iv to Rac with Ivf clarifited with hospitalist-Ns at 75ml/hr. K+ protocol one bag left. Slow zosyn. Dilaudid Chocolate Packer continues to manage pain. Adequate urine out via torres. She remains npo, few ice chips. was notified of consult and all questions answered. COntinue to encourage Is usage today. Scds ble. Vss, tele on. Bedside report to Kathy & who will resume care.
--- NOTE | 2019-06-07 21:00 | NUR ---
Pt was sitting up in bed watching television. Pt had no abnormal findings during her assesment. Pt has a torres in place and has has clear yellow urine. Pt has been tolerating ice chips and sips of water while taking her PO medications. Pt was reminded to press the button on her FLYING I INSTRUCTOR pump if she was having pain. She stated at one time that she was having pain but she stated she had forgot to hit the button. Pt has her call light within reach!
[2019-06-08] VITALS (12 sets, daily range): BP systolic 119–144; BP diastolic 60–84; PULSE 99–112; TEMP 97.5–100.8
--- NOTE | 2019-06-08 | NUR ---
Pt currently lying in bed. Pt did state that her bladder felt very full. I repositioned her and she was able to get relief once the torres began to drain. She did have an elevated temp at 0001 which was 100.0. Tylenol was given at this time and a cool towel was placed on her forehead. The temp did go down in like 45 mins to 99.4, this was taken orally. Pt did not have any other concerns at this time. Call light is within reach.
--- NOTE | 2019-06-08 04:09 | NUR ---
Pt currently lying in bed sleeping. Her call light is within reach and her bed is lowest postion
[2019-06-08 07:11] LABS: BASO # 0.1 (0.0-0.2); BASO % 0.5 % (0.0-2.0); EOS # 0.5 (0.0-0.7); EOS % 3.4 % (0-4.0); GRAN # 11.4 (1.4-6.5); HEMOGLOBIN 10.4 g/dl (12.5-16.0); LYMPH # 1.9 (1.2-3.4); MEAN CELL VOLUME 90 fl (80.0-100.0); MEAN CORPUSCULAR HEMOGLOBIN 30 pg (27.0-31.0); MEAN CORPUSCULAR HGB CONC 33 g/dl (33.0-37.0); MEAN PLATELET VOLUME 10.4 fl (7.4-10.4); MONO # 1.5 (0.1-0.6); MONO % 9.6 % (1.7-9.3); PLATELET COUNT 323 K/mm3 (130-400); RED BLOOD COUNT 3.46 M/mm3 (4.10-5.30); REDCELL DISTRIBUTION WIDTH-CV 12.2 % (11.5-14.5)
[2019-06-08 07:12] LABS: HEMATOCRIT 31.2 % (37.0-47.0)
[2019-06-08 07:42] LABS: CALCIUM 7.9 mg/dL (8.4-10.2); CREATININE, serum 0.31 (0.52-1.25); MAGNESIUM 1.9 mg/dL (1.6-2.3); PHOSPHOROUS 2.3 mg/dL (2.5-4.5); POTASSIUM 3.4 mmol/L (3.4-5.0)
--- NOTE | 2019-06-08 08:00 | NUR ---
PATIENT RESTING IN BED THIS MORNING. TACHYCARDIA NOTED. VSS. ABDOMEN DISTENDED BUT SOFT UPON PALPATION. PATIENT STATES SHE'S PASSING FLATUS AND HAS HAD A SMALL BOWEL MOVEMENT. TRACE EDEMA TO FEET BILATERALLY. CALL LIGHT AND LOG CHAIN FEEDER BUTTON WITHIN REACH. PATIENT DENIES ANY NEEDS AT THIS TIME.
--- NOTE | 2019-06-08 12:40 | NUR ---
IV FLUID RATE CHANGED TO 30 ML/HR PER ORDERS. PATIENT SITTING UP IN CHAIR AT THE BEDSIDE. PATIENT DENIES ANY NEEDS AT THIS TIME.
--- NOTE | 2019-06-08 13:09 | NUR ---
PATIENT HAS TEMPERATURE OF 99.8. PATIENT GIVEN PRN DOSE OF TYLENOL. WILL CONTINUE TO MONITOR.
--- NOTE | 2019-06-08 15:54 | NUR ---
GUY attended clinical rounds. The hospitalist discussed focusing on getting up and moving for the patient and decreasing pain meds. She remains on TPN. SW to continue to follow.
--- NOTE | 2019-06-08 15:59 | NUR ---
RAMESH DISCONTINUED PER ORDERS. 9 ML ASPIRATED FROM BALLOON. BALLOON TIP INTACT. PATIENT TOLERATED WELL.
--- NOTE | 2019-06-08 17:56 | NUR ---
PATIENT VOIDING SUFFICIENTLY POST RAMESH REMOVAL. PATIENT SITTING UP IN THE CHAIR AT THE BEDSIDE. PATIENT REQUESTS ICE CHIPS. NO OTHER NEEDS AT THIS TIME.
--- NOTE | 2019-06-08 19:00 | NUR ---
BEDSIDE SHIFT REPORT GIVEN TO TYRONE CUNNINGHAM.
--- NOTE | 2019-06-08 21:00 | NUR ---
PT BACK TO BED, HAD BEEN UP IN CHAIR AT BEDSIDE FOR MOST OF AFTERNOON. REMAINS ON CHIEF RADIOLOGY DILAUDID FOR ABD PAIN. COMPLAINS OF BACK PAIN WELL. IV SITE TO LEFT AC WITHOUT REDNESS OR SWELLING. HAS SINGLE LUMEN PICC TO RIGHT ARM WITH CLINIMIX INFUSING. SHE REMAINS NPO EXCEPT FOR ICE CHIPS SPARINGLY. IS VOIDING WELL SINCE RAMESH DC'D TODAY.
--- NOTE | 2019-06-08 23:44 | NUR ---
PT HAS TEMP 100.8, SHE IS LAYING ON A KPAD FOR BACK DISCOMFORT.
[2019-06-09 02:58] VITALS: BP 120/54; PULSE 110; TEMP 99.8
--- NOTE | 2019-06-09 04:30 | NUR ---
Pt resting well. ECHOCARDIOGRAPHER Dilaudid syringe changed at this time. Has KPAD off at this time.
[2019-06-09 07:00] LABS: HEMOGLOBIN 10.9 g/dl (12.5-16.0); MEAN CELL VOLUME 91 fl (80.0-100.0); MEAN CORPUSCULAR HEMOGLOBIN 30 pg (27.0-31.0); MEAN CORPUSCULAR HGB CONC 33 g/dl (33.0-37.0); PLATELET COUNT 403 K/mm3 (130-400); RED BLOOD COUNT 3.59 M/mm3 (4.10-5.30); REDCELL DISTRIBUTION WIDTH-CV 12.4 % (11.5-14.5)
[2019-06-09 07:08] LABS: HEMATOCRIT 32.8 % (37.0-47.0)
[2019-06-09 07:13] VITALS: BP 128/76; PULSE 112; TEMP 98.2
[2019-06-09 07:16] LABS: CALCIUM 8.3 mg/dL (8.4-10.2); CREATININE, serum 0.34 (0.52-1.25); MAGNESIUM 2.2 mg/dL (1.6-2.3); PHOSPHOROUS 2.8 mg/dL (2.5-4.5); POTASSIUM 3.5 mmol/L (3.4-5.0)
[2019-06-09 07:25] LABS: BAND 10 % (0-10); EOSINOPHIL 4 % (0-4); LYMPHOCYTE 20 % (20.0-51.0); NEUTROPHILS 56 % (42.0-75.2); PLATELET ESTIMATE INCREASED (NORMAL)
--- NOTE | 2019-06-09 09:23 | NUR ---
Patient standing at sink brushing her teeth. Awake alert, in positive spirits. Voided this am. Picc to Rue, Tpn per orders. She remains Npo, denies nausea. Specialty Person continues to pain mangment. Rating 8/10 after using her IS. Lungs bases diminished.
--- NOTE | 2019-06-09 09:50 | NUR ---
hospitalsit team rounded. Fulfillment Associate adjusted per orders. Clear liquids provided, instructed her to take it very slow.
--- NOTE | 2019-06-09 11:36 | NUR ---
Ambulated in halls with patient & she did well. Pain was elevated after, one tab roxicodone for pain per request. SHe is sipping on apple clear liquid ensure very slowly. Will monitor.
[2019-06-09 11:37] VITALS: BP 134/72; PULSE 105; TEMP 98.6
--- NOTE | 2019-06-09 13:28 | NUR ---
SW attended clinical rounds. The patient remains on TPN. Plan is to start the patient on a clear liquid diet. SW to continue to follow.
[2019-06-09 15:39] VITALS: BP 130/73; PULSE 106; TEMP 97.8
--- NOTE | 2019-06-09 19:49 | NUR ---
Patient doing very well. She reports feeling so much better. She showered this afternoon. We ambulated the halls again this evening. She has tolerated sips of clears. Pain manged with Rn Mobile, we have avoided using more roxicodone because it gve her bad dreams & made her too sleepy. Picc to Rue with Tpn per orders, blood sugars manged. Lac Iv with wine master & Ivf. Report to nightshift nurse
[2019-06-09 20:00] VITALS: BP 148/96; PULSE 111
[2019-06-09 21:27] VITALS: BP 148/96; PULSE 111; TEMP 98.5
[2019-06-10] VITALS (7 sets, daily range): BP systolic 126–148; BP diastolic 65–91; PULSE 92–108; TEMP 98–99
--- NOTE | 2019-06-10 04:25 | NUR ---
On RA for >24hrs, completing intervention per protocol.
--- NOTE | 2019-06-10 04:29 | NUR ---
Patient had trouble falling asleep last night. PRN Melatonin 3mg order given by MAGALY Delaney. This was noted to be effective. Patient complains of pain to her back. Refuses PRN Oxycodone d/t lethargy yesterday. IV antibiotics given as prescribed. Patient ambulated with one assist from staff. Tolerated this well. Will continue to monitor.
[2019-06-10 05:53] LABS: BASO # 0.1 (0.0-0.2); BASO % 0.6 % (0.0-2.0); EOS # 0.9 (0.0-0.7); EOS % 5.8 % (0-4.0); GRAN % 67.6 % (42.2-75.2); HEMOGLOBIN 10.6 g/dl (12.5-16.0); LYMPH # 2.1 (1.2-3.4); LYMPH % 13.1 % (20.0-51.0); MEAN CELL VOLUME 93 fl (80.0-100.0); MEAN CORPUSCULAR HEMOGLOBIN 30 pg (27.0-31.0); MEAN CORPUSCULAR HGB CONC 33 g/dl (33.0-37.0); MEAN PLATELET VOLUME 9.5 fl (7.4-10.4); MONO # 1.8 (0.1-0.6); MONO % 11.2 % (1.7-9.3); PLATELET COUNT 435 K/mm3 (130-400); RED BLOOD COUNT 3.49 M/mm3 (4.10-5.30); REDCELL DISTRIBUTION WIDTH-CV 12.7 % (11.5-14.5)
[2019-06-10 05:54] LABS: HEMATOCRIT 32.4 % (37.0-47.0)
[2019-06-10 06:03] LABS: CALCIUM 8.4 mg/dL (8.4-10.2); CREATININE, serum 0.37 (0.52-1.25); PHOSPHOROUS 4.3 mg/dL (2.5-4.5); POTASSIUM 4.1 mmol/L (3.4-5.0)
--- NOTE | 2019-06-10 08:55 | NUR ---
PATIENT GIVEN PRN TYLENOL FOR TEMP OF 99.0. PATIENT STATES THAT SHE FEEL WARM. PATIENT REQUESTING SHOWER THIS AFTERNOON.
--- NOTE | 2019-06-10 10:41 | NUR ---
STOP MARINE DIESEL MECHANIC AND START PO PAIN MEDICATION. STOP IV FLUIDS. START PATIENT ON MECHANICAL SOFT DIET. VORCas SALGADO TO THIS NURSE.
--- NOTE | 2019-06-10 10:50 | NUR ---
PATIENTS IV FLUIDS AND WIRE TINNER STOPPED PER DOCTOR ORDERS. PATIENT GIVEN PRN DOSE OF ROXICODONE.
--- NOTE | 2019-06-10 11:13 | NUR ---
LENA WITH RT CALLED AND NOTIFIED THAT THE PATIENT IS NO LONGER ON ADVERTISING COLUMNIST.
--- NOTE | 2019-06-10 12:04 | NUR ---
PATIENT DISCONNECTED FROM TPN FOR SHOWER. PATIENT DENIES ANY PAIN AT THIS TIME.
--- NOTE | 2019-06-10 12:25 | NUR ---
PATIENT RECONNECTED TO TPN. PATIENT STATES THAT SHE HAD A LARGE BOWEL MOVEMENT AND THAT IT HAS RELIEVED ALOT OF PRESSURE IN THE ABDOMEN AND BACK. PATIENT STATES THAT SHE FEELS MUCH BETTER NOW.
--- NOTE | 2019-06-10 13:00 | NUR ---
PATIENT REPORTS 3 LARGE LOOSE, LIQUID STOOLS THIS MORNING AFTER AM BOWEL MEDICATIONS. PATIENT STATES THAT SHE FEELS THOUGH HER STOMACH HAS DELFATED, AND REPORTS HER BACK PAIN HAS IMPROVED.
--- NOTE | 2019-06-10 14:26 | NUR ---
PATIENT TOLERATING SMALL AMOUNTS OF MECHANICAL SOFT DIET. PATIENT STATES THAT THE PAIN IS WORSE AFTER EATING. PATIENT GIVEN A WARM BLANKET FOR ABDOMEN AND PRN DOSE OF ROXICODONE AND TYLENOL. PATIENT DENIES ANY OTHER NEEDS AT THIS TIME.
--- NOTE | 2019-06-10 19:22 | NUR ---
BEDSIDE SHIFT REPORT GIVEN TO TYRONE PATTON.
[2019-06-11] VITALS (7 sets, daily range): BP systolic 105–141; BP diastolic 58–81; PULSE 90–104; TEMP 98–98.3
--- NOTE | 2019-06-11 05:56 | NUR ---
Patient had a rough night. Stated she was feeling good until about 0100 when her pain increased significantly. She had received 10mg Roxycodone at about 0000, but was sitting on the side of her bed and was crying. Hard to console. Patient verbalized frustration with her pain increase and asked for something for more pain medication. MAGALY Delaney notified and ordered one time dose of Dilaudid 0.5. Administered. Upon reassessment patient noted to be asleep. This morning, patient again voices frustration with pain. Will continue to monitor patient.
[2019-06-11 06:22] LABS: MEAN CELL VOLUME 93 fl (80.0-100.0); MEAN CORPUSCULAR HEMOGLOBIN 30 pg (27.0-31.0); MEAN CORPUSCULAR HGB CONC 33 g/dl (33.0-37.0); MEAN PLATELET VOLUME 9.5 fl (7.4-10.4); PLATELET COUNT 486 K/mm3 (130-400); RED BLOOD COUNT 3.63 M/mm3 (4.10-5.30); REDCELL DISTRIBUTION WIDTH-CV 12.7 % (11.5-14.5)
[2019-06-11 06:32] LABS: HEMATOCRIT 33.6 % (37.0-47.0)
[2019-06-11 06:43] LABS: CALCIUM 8.9 mg/dL (8.4-10.2); CREATININE, serum 0.4 (0.52-1.25); MAGNESIUM 2.2 mg/dL (1.6-2.3); PHOSPHOROUS 4.7 mg/dL (2.5-4.5); POTASSIUM 4.1 mmol/L (3.4-5.0)
[2019-06-11 07:08] LABS: BAND 9 % (0-10); BASOPHIL 1 % (0-2); EOSINOPHIL 8 % (0-4); LYMPHOCYTE 18 % (20.0-51.0); METAMYELOCYTE 1 % (0-0); NEUTROPHILS 56 % (42.0-75.2); PLATELET ESTIMATE INCREASED (NORMAL)
--- NOTE | 2019-06-11 11:00 | NUR ---
PATIENT RESTING IN BED THIS MORNING. PATIENT REPORTS HAVING A ROUGH EVENING DUE TO PAIN. TACHYCARDIA NOTED. VSS. TELE IN PLACE. PATIENT GIVEN PRN DOSE OF OXYCODONE AND ONE TIME DOSE OF BACLOFEN. CALL LIGHT WITHIN REACH. PATIENT DENIES ANY NEEDS AT THIS TIME.
--- NOTE | 2019-06-11 12:35 | NUR ---
PATIENTS LEFT AC INT DISCONTINUED. TIP INTACT. PATIENT TOLERATED WELL.
--- NOTE | 2019-06-11 12:38 | NUR ---
PATIENT REPORTS THAT HER PAIN HAS IMPROVED WITH THE ADDITION OF PO BACLOFEN. PATIENT TOLERATING MECH SOFT DIET. NO NEEDS AT THIS TIME.
--- NOTE | 2019-06-11 15:34 | NUR ---
PATIENT DISCONNECTED FROM TPN FOR SHOWER.
[2019-06-12 03:27] VITALS: BP 114/62; PULSE 94; TEMP 98.5
--- NOTE | 2019-06-12 04:20 | NUR ---
ALTERNATING NORCO AND OXYCODONE FOR ABDOMINAL DISCOMFORT. NO N/V. PT PASSING GAS. 12 HOUR URINE TEST STARTED AT 0332 THIS MORNING.
[2019-06-12 07:09] LABS: CALCIUM 9.6 mg/dL (8.4-10.2); CREATININE, serum 0.5 (0.52-1.25); MAGNESIUM 2.3 mg/dL (1.6-2.3); PHOSPHOROUS 5.6 mg/dL (2.5-4.5); POTASSIUM 4.1 mmol/L (3.4-5.0)
[2019-06-12 07:11] VITALS: BP 103/60; PULSE 80; TEMP 98.3
--- NOTE | 2019-06-12 08:00 | NUR ---
Patient resting in bed at this time. Patient reports pain is well controlled at this time. Patient is alert and oriented, answers questions appropriately. Patient denies needs, call light within reach.
[2019-06-12 08:38] LABS: HEMOGLOBIN 11.6 g/dl (12.5-16.0); MEAN CELL VOLUME 93 fl (80.0-100.0); MEAN CORPUSCULAR HEMOGLOBIN 30 pg (27.0-31.0); MEAN CORPUSCULAR HGB CONC 32 g/dl (33.0-37.0); MEAN PLATELET VOLUME 9.5 fl (7.4-10.4); PLATELET COUNT 554 K/mm3 (130-400); RED BLOOD COUNT 3.93 M/mm3 (4.10-5.30); REDCELL DISTRIBUTION WIDTH-CV 12.6 % (11.5-14.5)
[2019-06-12 08:45] LABS: HEMATOCRIT 36.4 % (37.0-47.0)
[2019-06-12 09:22] LABS: BAND 14 % (0-10); EOSINOPHIL 14 % (0-4); LYMPHOCYTE 7 % (20.0-51.0); METAMYELOCYTE 3 % (0-0); NEUTROPHILS 48 % (42.0-75.2)
[2019-06-12] MEDS ORDERED: NORCO 325 MG-51 TAB PO (09:23)
[2019-06-12] MEDS ORDERED: ROXICODONE 55 MG/TAB PO (09:25)
[2019-06-12] MEDS ORDERED: SENOKOT S 50 MG1 TAB PO (09:26)
--- NOTE | 2019-06-12 09:33 | NUR ---
GUY attended clinical rounds with the team. The patient is to tentatively discharge home this day, 06/11. The patient had not concerns. GUY set up appointment with Dr. Glaser on 06/13 at 10:30am. The patient was agreeable to this time. Since Dr. Glaser is leaving, GUY provided a list of physicians for the patient. There are no additional needs at this time.
[2019-06-12 11:07] VITALS: BP 112/62; PULSE 95; TEMP 97.8
--- NOTE | 2019-06-12 15:04 | NUR ---
Discharge teaching completed. Discussed follow up appointments, discharge instructions, and discharge medications. Patient verbalized understanding. PICC removed per protocol by certified nurse. Patient denied further needs, patient escorted to ED entrance where she entered a private vehicle.
[2019-06-13 08:44] LABS: PATHOLOGY DIFF REVIEW OK
== END 2019-06-12 15:04 | disposition home or self-care (01) | DRG 439 ==
LOC: COL.ER 09:10 → SURG 11:01
PROVIDERS: Nurse Practitioner; Nurse Practitioner Family; Physician Assistant; ADMIT Internal Medicine
DX: K85.90 Acute pancreatitis without necrosis or infection, unspecified (principal); J90 Pleural effusion, not elsewhere classified; K56.7 Ileus, unspecified; R65.10 Systemic inflammatory response syndrome (SIRS) of non-infectious origin without acute organ dysfunction; E44.0 Moderate protein-calorie malnutrition; K59.00 Constipation, unspecified; E03.9 Hypothyroidism, unspecified; F17.210 Nicotine dependence, cigarettes, uncomplicated; K58.9 Irritable bowel syndrome, unspecified; R33.9 Retention of urine, unspecified; E87.6 Hypokalemia; Z68.29 Body mass index [BMI] 29.0-29.9, adult; E16.2 Hypoglycemia, unspecified; Z88.1 Allergy status to other antibiotic agents; E83.39 Other disorders of phosphorus metabolism
CPT/HCPCS: 99222-AI; 99232-AI; 99233-AI; 99239; A4217; A9284; J0610; J1170; J1450; J1650; J2060; J2185; J2270; J2405; J2543; J3010; J3411; J3475; J3480; J7030; J7050; J7131; Q9967

== ENCOUNTER 2020-03-05 10:55 | Emergency (ER) | payer MEDICAID ==
[~2020-03-05] VITALS: Ht 162.6 cm; Wt 72.7 kg
[~2020-03-05 10:55] MED LIST changes: +ROXICODONE 55 MG/TAB PO; +SENOKOT S 50 MG1 TAB PO
[2020-03-05 10:59] VITALS: TEMP 98
[2020-03-05 11:54] LABS: ALBUMIN 4.5 gm/dL (3.5-5.0); BILIRUBIN,TOTAL 0.3 mg/dL (0.0-1.0); C-REACTIVE PROTEIN 0.9 mg/dL (0.0-0.9); CALCIUM 9.3 mg/dL (8.4-10.2); CREATININE, serum 0.59 (0.52-1.25); POTASSIUM 4.1 mmol/L (3.4-5.0); TOTAL PROTEIN 7.6 gm/dL (6.4-8.2)
[2020-03-05 11:55] LABS: BASO # 0.1 (0.0-0.2); EOS # 0.1 (0.0-0.7); EOS % 1.5 % (0-4.0); GRAN # 5.2 (1.4-6.5); HEMATOCRIT 41.3 % (37.0-47.0); LYMPH # 2.2 (1.2-3.4); LYMPH % 26.4 % (20.0-51.0); MEAN CELL VOLUME 91 fl (80.0-100.0); MEAN CORPUSCULAR HEMOGLOBIN 31 pg (27.0-31.0); MEAN CORPUSCULAR HGB CONC 34 g/dl (33.0-37.0); MEAN PLATELET VOLUME 9.8 fl (7.4-10.4); MONO # 0.6 (0.1-0.6); PLATELET COUNT 330 K/mm3 (130-400); RED BLOOD COUNT 4.55 M/mm3 (4.10-5.30)
[2020-03-05 12:09] LABS: COLLECTION METHOD CLEAN CATCH
[2020-03-05 12:23] LABS: PH 8 (5-8); SQUAMOUS EPITHELIAL 0-2 /hpf; URINE APPEARANCE Clear; URINE BACTERIA None Seen /hpf; URINE BILIRUBIN Negative (NEGATIVE); URINE BLOOD Negative (NEGATIVE); URINE COLOR Straw; URINE GLUCOSE Negative (NEGATIVE); URINE KETONE Negative (NEGATIVE); URINE LEUKOCYTE ESTERASE Negative (NEGATIVE); URINE NITRATE Negative (NEGATIVE); URINE PROTEIN(semi-quant) Negative (NEGATIVE); URINE RBC 0-2 /hpf; URINE UROBILINOGEN Negative (NEGATIVE)
[2020-03-05] MEDS ORDERED: NORCO 325 MG-51 TAB PO (12:48)
[2020-03-05 13:18] VITALS: BP 110/64; PULSE 86
== END 2020-03-05 13:19 | disposition home or self-care (01) ==
LOC: COL.ER 10:55
PROVIDERS: Family Medicine
DX: R10.11 Right upper quadrant pain (principal); F17.200 Nicotine dependence, unspecified, uncomplicated; Z90.49 Acquired absence of other specified parts of digestive tract; Z87.19 Personal history of other diseases of the digestive system; Z88.1 Allergy status to other antibiotic agents
CPT/HCPCS: J2405; J3010; J7120

== ENCOUNTER 2020-12-30 07:30 | Emergency (ER) | payer MEDICAID ==
[~2020-12-30] VITALS: Ht 157.5 cm; Wt 72.7 kg
[2020-12-30 07:38] VITALS: TEMP 97.5
[2020-12-30 08:07] LABS: BASO # 0.1 (0.0-0.2); BASO % 0.7 % (0.0-2.0); EOS # 0.1 (0.0-0.7); GRAN # 7.9 (1.4-6.5); GRAN % 72.7 % (42.2-75.2); HEMATOCRIT 41.7 % (37.0-47.0); HEMOGLOBIN 14.4 g/dl (12.5-16.0); LYMPH % 18.4 % (20.0-51.0); MEAN CELL VOLUME 89 fl (80.0-100.0); MEAN CORPUSCULAR HEMOGLOBIN 31 pg (27.0-31.0); MEAN CORPUSCULAR HGB CONC 35 g/dl (33.0-37.0); MEAN PLATELET VOLUME 9.5 fl (7.4-10.4); MONO # 0.7 (0.1-0.6); MONO % 6.7 % (1.7-9.3); PLATELET COUNT 337 K/mm3 (130-400); RED BLOOD COUNT 4.71 M/mm3 (4.10-5.30); REDCELL DISTRIBUTION WIDTH-CV 12.1 % (11.5-14.5)
[2020-12-30 08:15] LABS: COLLECTION METHOD CLEAN CATCH
[2020-12-30 08:30] LABS: ALBUMIN 4.6 gm/dL (3.5-5.0); BILIRUBIN,TOTAL 0.8 mg/dL (0.2-1.2); CALCIUM 9.6 mg/dL (8.4-10.2); CREATININE, serum 0.77 mg/dL (0.57-1.11); POTASSIUM 3.8 mmol/L (3.5-4.5); TOTAL PROTEIN 7.9 gm/dL (6.2-8.1)
[2020-12-30 08:36] LABS: MUCOUS Present /lpf; PH 7 (5-8); URINE APPEARANCE Hazy; URINE BACTERIA Rare /hpf; URINE BILIRUBIN Negative (NEGATIVE); URINE BLOOD Negative (NEGATIVE); URINE COLOR Yellow; URINE GLUCOSE Negative (NEGATIVE); URINE KETONE Negative (NEGATIVE); URINE LEUKOCYTE ESTERASE 2+ (NEGATIVE); URINE NITRATE Negative (NEGATIVE); URINE PROTEIN(semi-quant) 1+ (NEGATIVE); URINE RBC 0-2 /hpf; URINE UROBILINOGEN Negative (NEGATIVE)
[2020-12-30] MEDS ORDERED: NORCO 325 MG-51 TAB PO (11:06)
[2020-12-30] MEDS ORDERED: ZOFRAN ODT4 MG PO (11:06)
[2020-12-30 11:21] VITALS: BP 125/89; PULSE 85
[2020-12-31] MEDS ORDERED: PEPCID 20MG TAB20 MG PO (10:19)
[2020-12-31] MEDS ORDERED: BENTYL 10MG10 MG/CAP PO (10:19)
== END 2020-12-30 11:15 | disposition home or self-care (01) ==
LOC: COL.ER 07:30
PROVIDERS: Personal Emergency Response Attendant
DX: R10.11 Right upper quadrant pain (principal); E03.9 Hypothyroidism, unspecified; F17.210 Nicotine dependence, cigarettes, uncomplicated; Z87.442 Personal history of urinary calculi; Z90.49 Acquired absence of other specified parts of digestive tract; Z79.890 Hormone replacement therapy
CPT/HCPCS: J0500; J1885; J2060; J2270; J2405; J7030; Q9967

== ENCOUNTER 2020-12-30 12:34 | Emergency (ER) | payer MEDICAID ==
[~2020-12-30] VITALS: Ht 157.5 cm; Wt 72.7 kg
[~2020-12-30 12:34] MED LIST changes: +ZOFRAN ODT4 MG PO
[2020-12-30 12:52] VITALS: BP 131/88; PULSE 95; TEMP 98.4
[2020-12-31] MEDS ORDERED: BENTYL 10MG10 MG/CAP PO (10:19)
[2020-12-31] MEDS ORDERED: PEPCID 20MG TAB20 MG PO (10:19)
== END 2020-12-30 14:50 | disposition left against medical advice (07) ==
LOC: COL.ER 12:34
DX: R52 Pain, unspecified (principal)

== ENCOUNTER 2020-12-31 08:52 | Emergency (ER) | payer MEDICAID ==
[~2020-12-31] VITALS: Ht 157.5 cm; Wt 72.7 kg
[2020-12-31 08:55] VITALS: TEMP 98.1
[2020-12-31 09:19] LABS: COLLECTION METHOD CLEAN CATCH
[2020-12-31 09:29] LABS: BASO # 0.1 (0.0-0.2); BASO % 0.7 % (0.0-2.0); EOS # 0.2 (0.0-0.7); EOS % 1.5 % (0-4.0); GRAN # 8.9 (1.4-6.5); GRAN % 73.2 % (42.2-75.2); HEMATOCRIT 39.4 % (37.0-47.0); HEMOGLOBIN 13.4 g/dl (12.5-16.0); LYMPH % 16.7 % (20.0-51.0); MEAN CELL VOLUME 91 fl (80.0-100.0); MEAN CORPUSCULAR HEMOGLOBIN 31 pg (27.0-31.0); MEAN CORPUSCULAR HGB CONC 34 g/dl (33.0-37.0); MEAN PLATELET VOLUME 9.5 fl (7.4-10.4); MONO # 0.9 (0.1-0.6); MONO % 7.7 % (1.7-9.3); PLATELET COUNT 333 K/mm3 (130-400); RED BLOOD COUNT 4.32 M/mm3 (4.10-5.30); REDCELL DISTRIBUTION WIDTH-CV 12.2 % (11.5-14.5)
[2020-12-31 09:35] LABS: MUCOUS Present /lpf; PH 5 (5-8); URINE APPEARANCE Hazy; URINE BACTERIA Rare /hpf; URINE BILIRUBIN Negative (NEGATIVE); URINE BLOOD Negative (NEGATIVE); URINE COLOR Yellow; URINE GLUCOSE Negative (NEGATIVE); URINE KETONE Negative (NEGATIVE); URINE LEUKOCYTE ESTERASE Negative (NEGATIVE); URINE NITRATE Negative (NEGATIVE); URINE PROTEIN(semi-quant) Negative (NEGATIVE); URINE UROBILINOGEN Negative (NEGATIVE)
[2020-12-31 09:50] LABS: BILIRUBIN,TOTAL 0.5 mg/dL (0.2-1.2); CALCIUM 9.3 mg/dL (8.4-10.2); CREATININE, serum 0.73 mg/dL (0.57-1.11); POTASSIUM 3.8 mmol/L (3.5-4.5); TOTAL PROTEIN 6.9 gm/dL (6.2-8.1)
[2020-12-31] MEDS ORDERED: BENTYL 10MG10 MG/CAP PO (10:19)
[2020-12-31] MEDS ORDERED: PEPCID 20MG TAB20 MG PO (10:19)
[2020-12-31 10:49] VITALS: BP 111/64; PULSE 79
== END 2020-12-31 10:46 | disposition home or self-care (01) ==
LOC: COL.ER 08:52
PROVIDERS: Emergency Medicine
DX: R10.13 Epigastric pain (principal); E03.9 Hypothyroidism, unspecified; F17.210 Nicotine dependence, cigarettes, uncomplicated; Z90.49 Acquired absence of other specified parts of digestive tract; Z32.02 Encounter for pregnancy test, result negative; Z79.890 Hormone replacement therapy
CPT/HCPCS: J0500; J1885; J2270

== ENCOUNTER 2021-05-14 22:16 | Emergency (ER) | payer MEDICAID ==
[~2021-05-14] VITALS: Ht 157.5 cm; Wt 70.5 kg
[~2021-05-14 22:16] MED LIST changes: +BENTYL 10MG10 MG/CAP PO
[2021-05-14 22:36] VITALS: BP 117/74; PULSE 93; TEMP 97.9
== END 2021-05-14 23:11 | disposition home or self-care (01) ==
LOC: COL.ER 22:16
DX: S61.011A Laceration without foreign body of right thumb without damage to nail, initial encounter (principal); F17.210 Nicotine dependence, cigarettes, uncomplicated; W26.8XXA Contact with other sharp object(s), not elsewhere classified, initial encounter

== ENCOUNTER → 2021-07-31 | Outpatient (CLI) | payer MEDICAID | LOC: MC.RAD 07:00 | DX: N63.10 Unspecified lump in the right breast, unspecified quadrant (principal) ==

== ENCOUNTER 2021-09-11 17:50 | Emergency (ER) | payer MEDICAID ==
[~2021-09-11] VITALS: Ht 157.5 cm; Wt 70.5 kg
[2021-09-11 18:14] VITALS: BP 103/76; PULSE 82; TEMP 98.2
[2021-09-11] MEDS ORDERED: WELLBUTRIN XL150 MG PO (18:41)
[2021-09-11] MEDS ORDERED: SYNTHROID0.088 MG/T PO (18:42)
== END 2021-09-11 20:08 | disposition home or self-care (01) ==
LOC: COL.ER 17:50
DX: S61.310A Laceration without foreign body of right index finger with damage to nail, initial encounter (principal); Z28.311 Partially vaccinated for COVID-19; W26.9XXA Contact with unspecified sharp object(s), initial encounter

== ENCOUNTER 2021-10-21 00:07 | Emergency (ER) | payer MEDICAID ==
[~2021-10-21] VITALS: Ht 157.5 cm; Wt 72.7 kg
[~2021-10-21 00:07] MED LIST changes: +SYNTHROID0.088 MG/T PO; +WELLBUTRIN XL150 MG PO
[2021-10-21 00:11] VITALS: BP 122/84; PULSE 95; TEMP 97
[2021-10-21] MEDS ORDERED: TOPAMAX 25MG25 M1 PO (00:22)
== END 2021-10-21 00:55 | disposition home or self-care (01) ==
LOC: COL.ER 00:07
DX: H10.9 Unspecified conjunctivitis (principal); Z88.1 Allergy status to other antibiotic agents; Z28.311 Partially vaccinated for COVID-19

== ENCOUNTER 2021-11-16 16:55 | Emergency (ER) | payer MEDICAID ==
[~2021-11-16] VITALS: Ht 157.5 cm; Wt 72.7 kg
[~2021-11-16 16:55] MED LIST changes: +TOPAMAX 25MG25 M1 PO
[2021-11-16 17:06] VITALS: TEMP 97.5
[2021-11-16 20:33] VITALS: BP 119/91; PULSE 90
== END 2021-11-16 21:36 ==
LOC: COL.ER 16:55
DX: F32.A Depression, unspecified (principal); F41.9 Anxiety disorder, unspecified; F17.200 Nicotine dependence, unspecified, uncomplicated; Z28.311 Partially vaccinated for COVID-19

== ENCOUNTER 2023-03-31 20:47 | Emergency (ER) | payer MEDICAID ==
[~2023-03-31] VITALS: Ht 157.5 cm; Wt 70.5 kg
[~2023-03-31 20:47] MED LIST changes: +AMOXICILLIN 8751 TAB PO; +ANTIVERT 25MG25 MG PO; +FLONASEALLERGY NS; +MEDROL 4MG DOSPA4 MG PO; +PEN-VEE K500 MG PO; +PROAIR HFA0.09 MG/AC IH
[2023-03-31 21:04] VITALS: TEMP 99
[2023-03-31 21:57] LABS: BASO # 0.1 K/mm3 (0.0-0.2); EOS # 0.2 K/mm3 (0.0-0.7); EOS % 2.3 % (0.0-4.0); GRAN % 58.1 % (42.2-75.2); HEMOGLOBIN 13.7 g/dl (12.5-16.0); LYMPH # 2.6 K/mm3 (1.2-3.4); LYMPH % 30.4 % (20.0-51.0); MEAN CELL VOLUME 89 fl (80.0-100.0); MEAN CORPUSCULAR HEMOGLOBIN 31 pg (27-31); MEAN CORPUSCULAR HGB CONC 34 g/dl (33.0-37.0); MEAN PLATELET VOLUME 9.6 fl (7.4-10.4); MONO # 0.7 K/mm3 (0.1-0.6); PLATELET COUNT 385 K/mm3 (130-400); RED BLOOD COUNT 4.48 M/mm3 (4.10-5.30); REDCELL DISTRIBUTION WIDTH-CV 12.4 % (11.5-14.5)
[2023-03-31 22:15] LABS: ALBUMIN 4.2 gm/dL (3.5-5.0); BILIRUBIN,TOTAL 0.3 mg/dL (0.2-1.2); CALCIUM 9.1 mg/dL (8.4-10.2); CREATININE, serum 0.68 mg/dL (0.57-1.11); POTASSIUM 3.8 mmol/L (3.5-4.5); TOTAL PROTEIN 7.2 gm/dL (6.2-8.1)
[2023-04-01 00:35] VITALS: BP 118/107; PULSE 75
== END 2023-04-01 00:35 | disposition home or self-care (01) ==
LOC: COL.ER 20:47
PROVIDERS: Emergency Medicine
DX: H10.9 Unspecified conjunctivitis (principal)
CPT/HCPCS: J0295; J3370; J7050; Q9967

== ENCOUNTER 2023-12-02 20:30 | Emergency (ER) | payer MEDICAID ==
[~2023-12-02] VITALS: Ht 157.5 cm; Wt 63.6 kg
[2023-12-02 20:35] VITALS: TEMP 98.2
[2023-12-02 21:15] VITALS: BP 112/72; PULSE 82
== END 2023-12-02 21:20 | disposition home or self-care (01) ==
LOC: COL.ER 20:30
DX: L03.113 Cellulitis of right upper limb (principal); L02.413 Cutaneous abscess of right upper limb; F17.210 Nicotine dependence, cigarettes, uncomplicated; Z88.1 Allergy status to other antibiotic agents